=== PATIENT | female | born 2000 | race Caucasian/White ===

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

== ENCOUNTER 2019-01-01 20:35 | Emergency (ER) | payer OTHER ==
[2019-01-01] MEDS ORDERED: ACETAMINOPHEN TAB 325 MG TAB PO STA (21:38)
--- NOTE | 2019-01-01 21:41 | ED ---
Fever HPI - General Chief Complaint: Fever Stated Complaint: headache/neck pain/fever/nausea Time Seen by Provider: 01/01/19 21:23 Source: patient Mode of arrival: ambulatory Limitations: no limitations - History of Present Illness Initial Comments: Patient is a 18-year-old woman who presents to be evaluated for headache, fever the past 2 days. She states the symptoms started last night with an occipital headache. She describes it as aching, constant, moderate intensity. She states that today she noticed she was having fevers as well, and the pain seemed to be down her neck as well. She denies neck stiffness. She denies any neurologic symptoms. She states she may have a minimal cough but no other infectious symptoms. See the review of systems. Complaint: fever Onset/Timin -: days(s) Temperature Source: oral Associated Symptoms: headache Treatments Prior to Arrival: Ibuprofen - Related Data Home Medications Medication Instructions Recorded Confirmed Ibuprofen [Motrin Ib] 400 mg PO Q6H PRN 01/01/19 01/01/19 [place] 1 tab PO DAILY 01/01/19 01/01/19 Allergies Allergy/AdvReac Type Severity Reaction Status Date / Time No Known Allergies Allergy Verified 01/01/19 21:43 Review of Systems ROS Statement: Those systems with pertinent positive or pertinent negative responses have been documented in the HPI. ROS Other: All systems not noted in ROS Statement are negative. Constitutional: Reports: fever, chills Eyes: Denies: eye pain, vision change ENT: Denies: ear pain, throat pain, congestion Respiratory: Denies: cough Cardiovascular: Denies: chest pain, palpitations Gastrointestinal: Denies: abdominal pain, nausea, vomiting Genitourinary: Denies: dysuria, hematuria Musculoskeletal: Denies: back pain Skin: Denies: rash Neurological: Reports: headache. Denies: weakness, numbness, paresthesias, confusion Past Medical History Past Medical History: No Reported History History of Any Multi-Drug Resistant Organisms: None Reported Past Surgical History: No Surgical Hx Reported Past Psychological History: No Psychological Hx Reported Smoking Status: Never smoker Past Alcohol Use History: None Reported Past Drug Use History: None Reported General Exam Limitations: no limitations General appearance: alert, in no apparent distress Head exam: Present: atraumatic, normocephalic Eye exam: Present: normal appearance. Absent: scleral icterus, conjunctival injection ENT exam: Present: normal oropharynx, mucous membranes moist, TM's normal bilaterally, normal external ear exam Neck exam: Present: normal inspection, full ROM, lymphadenopathy. Absent: tenderness, meningismus Respiratory exam: Present: normal lung sounds bilaterally. Absent: respiratory distress, wheezes, rales, rhonchi, stridor Cardiovascular Exam: Present: regular rate, tachycardia, normal heart sounds. Absent: systolic murmur, diastolic murmur, rubs, gallop GI/Abdominal exam: Present: soft. Absent: distended, tenderness, guarding, rebound, rigid, mass Extremities exam: Present: normal inspection, normal capillary refill. Absent: pedal edema, calf tenderness Back exam: Present: normal inspection. Absent: CVA tenderness (R), CVA tenderness (L) Neurological exam: Present: alert Skin exam: Present: warm, dry, intact, normal color. Absent: rash Course Vital Signs 01/01/19 01/01/19 20:45 22:27 Temperature 100.4 F H Pulse Rate 121 H 93 Respiratory 22 16 Rate Blood Pressure 90/63 86/61 O2 Sat by Pulse 93 L 99 Oximetry Procedures - Lumbar Puncture Consent Obtained: verbal consent Indication for Procedure: headache, fever work up Patient Position: right lateral decubitus Skin Prep: Povidone-Iodine 1% Local Anesthetic Used: Lidocaine 1% Spinal Needle Gauge: 22G Spinal Needle Length: 3.5in Interspace Used: L4-L5 Fluid Initially Obtained: clear Complications: other (Vasovagal episode) Patient Tolerated Procedure: well Medical Decision Making - Medical Decision Making This patient is 18-year-old woman with headache and fever. After discussion of risks and benefits as well as indications, the patient has elected to proceed with having lumbar puncture to rule out meningitis. This procedure was initially attempted with the patient seated position, however shortly after instilling the lidocaine, the patient began to have vasovagal episode. She became nauseated and lightheaded and had to be placed in supine position. Patient was given IV fluids and Zofran for the nausea. Following this patient was able to have a procedure in the right lateral decubitus position, tolerating this well with no complications. Gram stain was phoned to me directly from lab as being negative for organisms. No cells noted. - Lab Data Lab Results 01/02/19 Range/Units 00:20 CSF Tube Number 4 CSF Volume 1.0 CSF Appearance Clear CSF Color Colorless CSF RBC 23 H (0-10) u/L CSF Tot Nucleated Cells 3 (0-5) u/L CSF Crenated Cells 75 % CSF Fresh RBCs 25 % CSF Glucose 62 (40-70) mg/dL CSF Total Protein 31 (12-60) mg/dL Disposition Clinical Impression: Viral infection Disposition: HOME SELF-CARE Condition: Good Instructions (If sedation given, give patient instructions): Fever in Adults (ED), Viral Syndrome (ED) Is patient prescribed a controlled substance at d/c from ED?: No Referrals: Blanca Anguiano MD [Primary Care Provider] - 1-2 days
[2019-01-01] MEDS ORDERED: LIDOCAINE 1% INJ 10MG/ML (20 ML MDV) SQ ONE (22:27)
[2019-01-01 22:31] VITALS: RESP 16
[2019-01-01] MEDS ORDERED: ONDANSETRON 4 MG/2 ML VIAL IVP STA ×2 (23:23→23:40)
[2019-01-01] MEDS ORDERED: SODIUM CHLORIDE 0.9% 1,000 ML IV ONE (23:23)
[2019-01-02 01:20] LABS: Glucose,CSF 62 mg/dL (40-70); Total Protein,CSF 31 mg/dL (12-60)
[2019-01-02 01:28] LABS: Appearance,CSF Clear; CSF Tube Number 4; Nucleated Cells, CSF 3 u/L (0-5); Red Blood Cell,CSF 23 u/L (0-10)
[2019-01-02 01:29] LABS: Red Blood Cell, CSF Crenated 75 %; Red Blood Cell, CSF Fresh 25 %
[2019-01-02 02:50] VITALS: TEMP 98.3
[2019-01-02] MEDS ORDERED: SODIUM CHLORIDE 0.9% 1,000 ML IV ONE (02:51)
[2019-01-02] MEDS ORDERED: IBUPROFEN 600 MG TAB PO STA (04:53)
[2019-01-02] MEDS ORDERED: ACETAMINOPHEN TAB 325 MG TAB PO STA (04:53)
[2019-01-02] MEDS ORDERED: diphenhydrAMINE 25 MG CAP PO STA (05:08)
[2019-01-02] MEDS ORDERED: METOCLOPRAMIDE 10 MG TAB PO STA (05:08)
[2019-01-02 05:12] VITALS: BP 89/57; PULSE 79
[2019-01-02] MEDS ORDERED: METOCLOPRAMIDE 5 MG/ML 2 ML VIAL IM STA (05:24)
== END 2019-01-02 05:38 | disposition home or self-care (01) ==
LOC: EC 20:35
DX: B34.9 Viral infection, unspecified (principal); R11.0 Nausea; Z79.3 Long term (current) use of hormonal contraceptives; Z53.8 Procedure and treatment not carried out for other reasons
CPT/HCPCS: 99283; 62270; 96372; 84157; 82945; 89050; 87070; 87205; J2765; J2405; J2001

== ENCOUNTER → 2019-06-21 | Outpatient (CLI) | payer OTHER ==
--- NOTE | 2019-06-21 08:37 | USB ---
Reason for exam: clinical finding. Indicated problem(s): palpable abnormality in the right breast. Physical Findings: Nurse Summary: 0.5cm movable lump 1 o'clock, 0.5cm movable lump 8 o'clock (nurse ts). US Breast RT Right complete breast ultrasound includes all four quadrants, the retroareolar region and axilla. Finding demonstrates a 1.6 x 0.7 x 1.3cm hypoechoic, vascular lesion at 1 o'clock, a 1.2 x 0.6 x 1.1cm hypoechoic, vascular lesion at 8 o'clock and a 0.6 x 0.4 x 0.6cm hypoechoic lesion at 11 o'clock. Probable fibroadenoma. These results were verbally communicated with the patient and result sheet given to the patient on 06/21/19. ASSESSMENT: Probably benign, BI-RAD 3 RECOMMENDATION: Ultrasound of the right breast in 6 months. Manage patient on a clinical basis.
== END ==
LOC: RADUSWWP 06:52
PROVIDERS: ATTEND Internal Medicine
DX: N63.13 Unspecified lump in the right breast, lower outer quadrant (principal)